=== PATIENT | male | born 1965 | race Caucasian/White ===

== ENCOUNTER 2017-06-06 22:19 | Emergency (ER) | payer OTHER ==
[~2017-06-06] VITALS: Ht 175.3 cm; Wt 97.9 kg
[~2017-06-06 22:19] MED LIST: MULTI VITAMIN; PRILOSEC10 MG; ZESTRIL,PRINIVIL5 MG
[2017-06-06 23:32] VITALS: BP 149/105
== END 2017-06-06 23:33 | disposition home or self-care (01) ==
LOC: EME 22:19 → RME 22:19
DX: S02.2XXA Fracture of nasal bones, initial encounter for closed fracture (principal); R04.0 Epistaxis; W50.0XXA Accidental hit or strike by another person, initial encounter; K21.9 Gastro-esophageal reflux disease without esophagitis; E78.5 Hyperlipidemia, unspecified
CPT/HCPCS: 99281; 99283